=== PATIENT | male | born 1955 | race Caucasian/White ===

== ENCOUNTER 2022-01-29 18:02 | Observation (INO) | payer MEDICARE, BC ==
[~2022-01-29] VITALS: Ht 177.8 cm; Wt 95.2 kg
[2022-01-29] MEDS ORDERED: NORVASC 10MG10 MG PO (18:24)
[2022-01-29] MEDS ORDERED: ASPIRIN 81M81 MG/TA2 PO (18:25)
[2022-01-29] MEDS ORDERED: ZOCOR 10MG10 MG PO (18:25)
[2022-01-29] MEDS ORDERED: PRILOSEC10 MG PO (18:25)
[2022-01-29] MEDS ORDERED: ACCUPRIL10 M1 PO (18:26)
[2022-01-29] MEDS ORDERED: EPA FISH OIL1 SGL PO (18:26)
[2022-01-29] MEDS ORDERED: PHARMASSURE ZIN50 MG PO (18:27)
[2022-01-29] MEDS ORDERED: NATURAL ST. JO300 MG PO (18:27)
[2022-01-29] MEDS ORDERED: ONE-A-DAY ESSE1 EACH PO (18:28)
[2022-01-29 21:11] LABS: BASO # 0.1 K/mm3 (0.0-0.2); BASO % 0.6 % (0.0-2.0); EOS # 0.1 K/mm3 (0.0-0.7); EOS % 0.8 % (0.0-4.0); GRAN # 7.5 K/mm3 (1.4-6.5); GRAN % 69.9 % (42.2-75.2); HEMATOCRIT 38.9 % (42.0-52.0); HEMOGLOBIN 13.5 g/dl (13.5-18.0); LYMPH # 2.1 K/mm3 (1.2-3.4); LYMPH % 19.1 % (20.0-51.0); MEAN CELL VOLUME 93 fl (80.0-100.0); MEAN CORPUSCULAR HEMOGLOBIN 32 pg (27-31); MEAN CORPUSCULAR HGB CONC 35 g/dl (33.0-37.0); MEAN PLATELET VOLUME 10.1 fl (7.4-10.4); MONO % 9.2 % (1.7-9.3); PLATELET COUNT 236 K/mm3 (130-400); REDCELL DISTRIBUTION WIDTH-CV 13.1 % (11.5-14.5)
[2022-01-29] MEDS ORDERED: ACCUPRIL40MGTAB PO (21:22)
[2022-01-29] MEDS ORDERED: LIPITOR20 MG PO (21:23)
[2022-01-29] MEDS ORDERED: SINGULAIR 110 MG/TAB PO (21:24)
[2022-01-29 23:17] LABS: HEMATOCRIT 36.9 % (42.0-52.0); HEMOGLOBIN 12.8 g/dl (13.5-18.0)
[2022-01-30] VITALS (521 sets, daily range): BP systolic 127–139; BP diastolic 72–79; PULSE 52–70; TEMP 97.7–98.1; O2SAT 88–100
--- NOTE | 2022-01-30 01:16 | NUR ---
Received report from ED nurse
--- NOTE | 2022-01-30 01:23 | NUR ---
Patient arrives to ICU room 8 via ED stretcher. Patient is alert and oriented; he scoots himself into ICU bed. Patient reports aching pain to right thigh, rated 4-5/10, which he states is largely improved from admission. No bruising or swelling noted to the extremity, however, the right thigh does does feel more firm compared to the left leg. All pulses palpable. Skin is pink, warm, and dry. All initial vitals within normal limits. Patient denies needing further pain medication at this time. Patient provided with fresh ice pack and instructed to call if pain increases.
--- NOTE | 2022-01-30 02:00 | NUR ---
Patient's belongings include street clothes, a pair of black glasses, a gold-colored wedding band, and a cell phone. Patient states his wallet was sent home with his , Jenn.
[2022-01-30 06:05] LABS: BASO % 0.3 % (0.0-2.0); EOS % 0.3 % (0.0-4.0); GRAN # 6.5 K/mm3 (1.4-6.5); GRAN % 72.7 % (42.2-75.2); HEMOGLOBIN 11.5 g/dl (13.5-18.0); LYMPH # 1.6 K/mm3 (1.2-3.4); LYMPH % 17.7 % (20.0-51.0); MEAN CELL VOLUME 92 fl (80.0-100.0); MEAN CORPUSCULAR HEMOGLOBIN 32 pg (27-31); MEAN CORPUSCULAR HGB CONC 35 g/dl (33.0-37.0); MEAN PLATELET VOLUME 10.5 fl (7.4-10.4); MONO # 0.8 K/mm3 (0.1-0.6); MONO % 8.6 % (1.7-9.3); PLATELET COUNT 214 K/mm3 (130-400); RED BLOOD COUNT 3.55 M/mm3 (4.20-5.60); REDCELL DISTRIBUTION WIDTH-CV 13.1 % (11.5-14.5)
[2022-01-30 06:15] LABS: HEMATOCRIT 32.8 % (42.0-52.0)
[2022-01-30 06:24] LABS: CALCIUM 8.1 mg/dL (8.4-10.2); CREATININE, serum 0.78 mg/dL (0.72-1.25); POTASSIUM 3.8 mmol/L (3.5-4.5)
--- NOTE | 2022-01-30 06:39 | NUR ---
Ortho physician at bedside.
--- NOTE | 2022-01-30 07:41 | NUR ---
Report given to SHEKHAR Cortez.
--- NOTE | 2022-01-30 10:22 | NUR ---
Initial visit; Patient thanked Flooring Machine Feeder for looking in on him and offering him God's blessings. Patient's also present and thanked Flooring Machine Feeder for stopping.
--- NOTE | 2022-01-30 11:44 | NUR ---
Social Work student met with patient to discuss discharge planning. Patient's was present at bedside during intake. Patient lives in [place] with Jenn(ph#[phone]), his . Patient sees Dr. Doug Dinh at [facility]. Patient receives his medications through [facility] in [place]. Patient states that he does not utilize any durable medical equiptment. Patient states he is independent with his ADL's. Patient states that he has filled out a DPOA-HC prior to his hospital stay and that his primary agent is his , Jenn. Patient also has four kids over the age of 18: Connie, Aki, Aldair, and Dalia. *Discharge plan: Home*
== END 2022-01-30 12:50 | disposition home or self-care (01) ==
LOC: COL.ER 18:02 → ICU 21:05 → SURG 21:05 → ICU 21:05
PROVIDERS: Nurse Practitioner Family; Orthopaedic Surgery; ADMIT Student in an Organized Health Care Education/Training Program
DX: S70.10XA Contusion of unspecified thigh, initial encounter (principal); I10 Essential (primary) hypertension; E78.5 Hyperlipidemia, unspecified; I25.10 Atherosclerotic heart disease of native coronary artery without angina pectoris; Z79.899 Other long term (current) drug therapy; Z79.82 Long term (current) use of aspirin; Z95.1 Presence of aortocoronary bypass graft; Z87.891 Personal history of nicotine dependence
CPT/HCPCS: G0378; J3010; J7030; J7120